=== PATIENT | female | born 1960 | race Caucasian/White ===

== ENCOUNTER 2017-11-27 09:50 | Outpatient (CLI) | payer BC | END 2017-11-27 09:51 | disposition home or self-care (01) | LOC: BICMAMMO 09:50 | PROVIDERS: ATTEND Internal Medicine | DX: Z12.31 Encounter for screening mammogram for malignant neoplasm of breast (principal) | CPT/HCPCS: 77063; 77067 ==

== ENCOUNTER 2018-06-05 09:00 | Outpatient (CLI) | payer OTHER ==
--- NOTE | 2018-06-05 09:48 | RAD ---
TWO VIEWS ABDOMEN: Comparison: None. History: Abdominal pain for four days. FINDINGS: Supine and upright views of the abdomen shows a nonspecific, nonobstructive bowel gas pattern. No jenae e air or airfluid levels are seen on the upright examination. Air is seen in the rectum. IMPRESSION: Unremarkable exam. POS: [facility]
== END 2018-06-05 09:01 | disposition home or self-care (01) ==
LOC: BICRAD 09:00
PROVIDERS: ATTEND Internal Medicine
DX: R10.9 Unspecified abdominal pain (principal)
CPT/HCPCS: 36415; 74019; 80053; 82150; 83690

== ENCOUNTER 2018-06-06 07:30 | Outpatient (CLI) | payer OTHER ==
--- NOTE | 2018-06-06 08:40 | ULT ---
COMPLETE ABDOMEN ULTRASOUND: Date: 06/06/18 INDICATION: Abdominal pain for 5 days. FINDINGS: No focal hepatic lesion is evident. Abdominal aorta, IVC, and pancreas appear within normal limits. The gallbladder is normal appearing. No sonographic Rangel's sign reported. Common bile duct measures 3.0 mm. The right kidney measures 8.5 x 3.6 x 5.1 cm. The left kidney measures 10.5 x 4.6 x 5.0 cm. No focal renal lesion or hydronephrosis is evident. The spleen measures 9.4 cm. IMPRESSION: No acute sonographic abnormality. POS: [facility]
== END 2018-06-06 07:31 | disposition home or self-care (01) ==
LOC: ULT 07:30
PROVIDERS: ATTEND Internal Medicine
DX: R10.84 Generalized abdominal pain (principal)
CPT/HCPCS: 76700

== ENCOUNTER 2018-12-03 07:48 | Outpatient (CLI) | payer OTHER ==
--- NOTE | 2018-12-03 08:21 | MMO ---
Bilateral MAMMO Bilat Screen [facility]. CLINICAL HISTORY: Patient is 58 years old and is seen for screening. The patient has no family history of breast cancer. The patient has no personal history of cancer. VIEWS: The views performed were: bilateral craniocaudal with tomosynthesis and bilateral mediolateral oblique with tomosynthesis. FILMS COMPARED: The present examination has been compared to prior imaging studies performed at [facility] on 09/02/2013, 10/06/2014, 10/18/2015, 10/30/2016 and 11/27/2017. MAMMOGRAM FINDINGS: There are scattered fibroglandular densities. There are no suspicious masses, suspicious calcifications, or new areas of architectural distortion. IMPRESSION: THERE IS NO MAMMOGRAPHIC EVIDENCE OF MALIGNANCY. A ROUTINE FOLLOW-UP MAMMOGRAM IN 1 YEAR IS RECOMMENDED. THE RESULTS OF THIS EXAM WERE SENT TO THE PATIENT. ACR BI-RADS Category 1 - Negative MAMMOGRAPHY NOTE: 1. A negative mammogram report should not delay a biopsy if a dominant of clinically suspicious mass is present. 2. Approximately 10% to 15% of breast cancers are not detected by mammography. 3. Adenosis and dense breasts may obscure an underlying neoplasm.
== END 2018-12-03 07:49 | disposition home or self-care (01) ==
LOC: BICMAMMO 07:48
PROVIDERS: ATTEND Internal Medicine
DX: Z12.31 Encounter for screening mammogram for malignant neoplasm of breast (principal)
CPT/HCPCS: 77063; 77067

== ENCOUNTER 2020-03-26 10:56 | Outpatient (CLI) | payer BC ==
--- NOTE | 2020-03-26 11:23 | MMO ---
Bilateral MAMMO Bilat Screen [facility]. CLINICAL HISTORY: Patient is 59 years old and is seen for screening. VIEWS: The views performed were: . FILMS COMPARED: The present examination has been compared to prior imaging studies performed at [facility] on 10/18/2015, 10/30/2016, 11/27/2017 and 12/03/2018. This study has been interpreted with the assistance of computer-aided detection. MAMMOGRAM FINDINGS: There are scattered fibroglandular densities. Finding 1: There are stable benign appearing calcifications seen in both breasts. Finding 2: There are stable benign appearing densities seen in both breasts. There are no suspicious masses, suspicious calcifications, or new areas of architectural distortion. IMPRESSION: THERE IS NO MAMMOGRAPHIC EVIDENCE OF MALIGNANCY. A ROUTINE FOLLOW-UP MAMMOGRAM IN 1 YEAR IS RECOMMENDED. THE RESULTS OF THIS EXAM WERE SENT TO THE PATIENT. ACR BI-RADS Category 2 - Benign finding MAMMOGRAPHY NOTE: 1. A negative mammogram report should not delay a biopsy if a dominant of clinically suspicious mass is present. 2. Approximately 10% to 15% of breast cancers are not detected by mammography. 3. Adenosis and dense breasts may obscure an underlying neoplasm. Reported by: KIM ARELLANO MD Electonically Signed: [id number]
--- NOTE | 2020-03-26 12:09 | BD ---
DEXA SCAN: Date: 03/26/2020 INDICATION: History of menopause and osteoporosis screening. FINDINGS: Lumbar Spine: BMD (g/cm2) L1 0.896 T-Score: -0.9 Z-Score: 0.4 L2 1.057 T-Score: 0.3 Z-Score: 1.7 L3 1.038 T-Score: -0.4 Z-Score: 1.1 L4 0.931 T-Score: -1.2 Z-Score: 0.4 L1-L4 0.980 T-Score: -0.6 Z-Score: 0.8 Left Femoral Neck: 0.896 T-Score: 0.4 Z-Score: 1.7 Left Total Hip: 1.027 T-Score: 0.7 Z-Score: 1.7 IMPRESSION: Based on WHO criteria, the patient's bone mineral density is considered normal. The patient is at low risk for fracture. POS: [facility]
== END 2020-03-26 10:57 | disposition home or self-care (01) ==
LOC: BICMAMMO 10:56
PROVIDERS: ATTEND Internal Medicine
DX: Z12.31 Encounter for screening mammogram for malignant neoplasm of breast (principal); Z13.820 Encounter for screening for osteoporosis; Z78.0 Asymptomatic menopausal state
CPT/HCPCS: 77063; 77067; 77080

== ENCOUNTER 2021-05-04 14:58 | Outpatient (CLI) | payer BC | END 2021-05-04 14:59 | disposition home or self-care (01) | LOC: BICMAMMO 14:58 | PROVIDERS: ATTEND Internal Medicine | DX: Z12.31 Encounter for screening mammogram for malignant neoplasm of breast (principal); Z13.820 Encounter for screening for osteoporosis; Z78.0 Asymptomatic menopausal state | CPT/HCPCS: 77063; 77067; 77080 ==

== ENCOUNTER 2021-05-26 08:31 | Outpatient (CLI) | payer BC ==
[2021-05-26 10:37] LABS: Hemoglobin 14.2 g/dL (12.0-15.5); Mean Corpuscular HGB CONC 32.8 g/dL (32.0-36.0); Mean Corpuscular Hemoglobin 30.6 pg (27.0-33.0); Mean Corpuscular Volume 93.3 fl (81.6-98.3); Mean Platelet Volume 10.3 fl (7.4-10.4); Platelet Count 281 10x3/uL (150-450); RBC Distribution Width 12.6 % (11.5-14.5); Red Blood Cell (RBC) Count 4.64 10x6/uL (3.90-5.03); White Blood Cell (WBC) Count 9.5 10x3/uL (3.5-10.5)
[2021-05-26 10:41] LABS: Prothrombin Time 11.1 sec (9.5-12.1)
[2021-05-26 10:49] LABS: Anion Gap 14 mmol/L (10-20); BUN (Urea Nitrogen) 17 mg/dL (9.8-20.1); Calc. Creatinine Clearance 0 mL/min (70-130); Calcium 9.3 mg/dL (7.8-10.44); Carbon Dioxide 25 mmol/L (23-31); Chloride 105 mmol/L (98-107); Glucose 95 mg/dL (80-115); Potassium 4.6 mmol/L (3.5-5.1); Sodium 139 mmol/L (136-145)
[2021-05-26 17:30] LABS: SARS-CoV-2 PCR by NAA Not Detected (NotDetected)
== END 2021-05-26 08:32 | disposition home or self-care (01) ==
LOC: LABBT 08:31
PROVIDERS: ATTEND Internal Medicine Cardiovascular Disease
DX: Z01.812 Encounter for preprocedural laboratory examination (principal); I49.5 Sick sinus syndrome; Z20.822 Contact with and (suspected) exposure to COVID-19
CPT/HCPCS: 80048; 85027; 85610; U0003; U0005

== ENCOUNTER 2021-05-31 06:36 | Day surgery (SDC) | payer BC ==
[2021-05-27 14:31] VITALS: BMI 23.1
[2021-05-31] MEDS ORDERED: Gentamicin 80 MG/2 ML VIAL ONE (06:40)
[2021-05-31] MEDS ORDERED: CEFAZOLIN 1 GM VIAL ONE (06:40)
[2021-05-31] MEDS ORDERED: Lidocaine 1% (PF) 30 ML VIAL ONE (06:44)
[2021-05-31] MEDS ORDERED: ceFAZolin 2 GM/DEX 5% 100 ML BAG ONE (06:51)
[2021-05-31] MEDS ORDERED: Midazolam HCl 2 mg/2 ml Vial ONE ×2 (07:14→07:47)
[2021-05-31] MEDS ORDERED: Fentanyl 100 MCG/2 ML VIAL ONE (07:14)
[2021-05-31] MEDS ORDERED: HYDROcodone/Acetaminophen 5/325 mg Tablet ONE ×2 (08:59→13:16)
[2021-05-31] MEDS ORDERED: Iopamidol 370 76% 50 ML VIAL FS ONE (09:16)
== END 2021-05-31 14:00 | disposition home or self-care (01) ==
LOC: SDC 06:36
PROVIDERS: ATTEND Internal Medicine Cardiovascular Disease
PROC: 02HK3JZ Insertion of Pacemaker Lead into Right Ventricle, Percutaneous Approach (ICD-10-PCS; principal; 2021-05-31)
PROC: 0JH607Z Insertion of Cardiac Resynchronization Pacemaker Pulse Generator into Chest Subcutaneous Tissue and Fascia, Open Approach (ICD-10-PCS; principal; 2021-05-31)
PROC: 02H63JZ Insertion of Pacemaker Lead into Right Atrium, Percutaneous Approach (ICD-10-PCS; principal; 2021-05-31)
DX: I49.5 Sick sinus syndrome (principal); R00.1 Bradycardia, unspecified; R55 Syncope and collapse; I47.1 Supraventricular tachycardia; I48.0 Paroxysmal atrial fibrillation; E03.9 Hypothyroidism, unspecified; Z79.899 Other long term (current) drug therapy
CPT/HCPCS: 33208; 71045; 85347; 93005; 99152; 99153; C1785; C1898; J0690; J1580; J2001; J2250; J3010; Q9967

== ENCOUNTER 2025-02-27 13:04 | Outpatient (CLI) | payer MEDICARE, BC | END 2025-02-27 13:05 | disposition home or self-care (01) | LOC: BICRAD 13:04 | PROVIDERS: ATTEND Internal Medicine | DX: R21 Rash and other nonspecific skin eruption (principal) | CPT/HCPCS: 71045 ==